=== PATIENT | male | born 1985 | race Caucasian/White ===

== ENCOUNTER 2025-03-23 10:08 | Outpatient (OUT) | payer SELFPAY ==
--- NOTE | 2025-03-23 | XR_ITS ---
The [address] [address] Patient Name: JUANA KOWALSKI MRN: [id number] date: 1985 Sex: M Assigned Patient Location: [facility] Current Patient Location: [facility] Accession/Order Number: [id number] Exam Date: 03/23/2025 10:00 Report Date: 03/23/2025 10:50 At the request of: JUANA FERRIS DO Procedure: XR elbow LT 2V LEFT ELBOW - 2 VIEWS CLINICAL HISTORY: Posterior left elbow pain radiating up the arm. No reported injury. COMPARISON: None AP and lateral views were obtained. There is no evidence of fracture or dislocation. There is mild posterior soft tissue swelling. There is no elbow effusion. XR/XR elbow LT 2V IMPRESSION: NO ACUTE BONY FINDINGS. Impression dictated by: Kylee Mosley M.D. 03/23/2025 10:50 AM Dictation Location: [place] [address] Electronically authenticated by: [id number] Y Date: 03/23/2025 10:50
--- OUTSIDE RECORDS SUMMARY | 2025-03-23 10:10 | XMS_ITS | Encounter Summary ---
Author Organization [facility] Address [address] [place] [address] Care Team Providers Care Rocket Motor Tester Name Role Phone Aron Palmer DO Primary Care Provider [phone] Walker Humphreys MD Unavailable [phone] Rohan Shelton DO Unavailable [phone] Source Comments In the event this information is protected by the Federal Confidentiality of Alcohol and Drug AbusePatient Records regulations: The Federal rules restrict any use of the information to criminally investigate or prosecute any alcohol or drug abuse patient.[facility] Encounter Details Date Type Department Care Team (Late st Contact Info) Description 03/10/2025 Patient Msg Neurology [address] [place] [id number] Provider, [facility] TREK Satisfaction Survey Social History Tobacco Use Types Packs/Day Years Used Date Smoking Tobacco: Every Day Cigarettes 1.5 18 Smokeless Tobacco: Current Chew Alcohol Use Standard Drinks/Week Comments Yes 0 (1 standard drink = 0.6 oz pur e alcohol) social PHQ-2 Answer Date Recorded PHQ-2 score 5 12/21/2024 Area Deprivation Index Answer Date Serjio rded National Score (1-100), lower number is lower ri 81 10/28/2024 State Score (1-10), lower number is lower risk 7 10/28/2024 Data from: https://www.neighborhoodatlas.medicine.[facility].edu/. 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
--- OUTSIDE RECORDS SUMMARY | 2025-03-23 10:10 | XMS_ITS | Encounter Summary ---
Author Organization [facility] Address [address] [place] [address] Care Team Providers Care Gear Setter Name Role Phone Aron Palmer DO Primary Care Provider [phone] Walker Humphreys MD Unavailable [phone] Rohan Shelton DO Unavailable [phone] Source Comments In the event this information is protected by the Federal Confidentiality of Alcohol and Drug AbusePatient Records regulations: The Federal rules restrict any use of the information to criminally investigate or prosecute any alcohol or drug abuse patient.[facility] Encounter Details Date Type Department Care Team (Late st Contact Info) Description 02/20/2025 Patient Msg Pain Recovery [address] [place] [address] Kaelyn Amor PSYD [address] [place] [address] TREK for Success/[employer] Social History Tobacco Use Types Packs/Day Years Used Date Smoking Tobacco: Every Day Cigarettes 1.5 18 Smokeless Tobacco: Current Chew Alcohol Use Standard Drinks/Week Comments Yes 0 (1 standard drink = 0.6 oz pur e alcohol) social PHQ-2 Answer Date Recorded PHQ-2 score 5 12/21/2024 Area Deprivation Index Answer Date Serjio rded National Score (1-100), lower number is lower ri sk 81 10/28/2024 State Score (1-10), lower number is lower risk 7 10/28/2024 Data from: https://www.neighborhoodatlas.medicine.[facility]/. 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
--- OUTSIDE RECORDS SUMMARY | 2025-03-23 10:10 | XMS_ITS | Encounter Summary ---
Author Organization [facility] Address [address] [place] [address] Care Team Providers Care Refinery Superintendent Name Role Phone Aron Palmer DO Primary Care Provider [phone] Walker Humphreys MD Unavailable [phone] Rohan Shelton DO Unavailable [phone] Source Comments In the event this information is protected by the Federal Confidentiality of Alcohol and Drug AbusePatient Records regulations: The Federal rules restrict any use of the information to criminally investigate or prosecute any alcohol or drug abuse patient.[facility] Encounter Details Date Type Department Care Team (Late st Contact Info) Description 11/19/2024 Patient Msg Pain Recovery [address] [place] [address] Jenna Pop, PhD [address] [place] [address] [facility] Social History Tobacco Use Types Packs/Day Years Used Date Smoking Tobacco: Every Day Cigarettes 1.5 18 Smokeless Tobacco: Current Chew Alcohol Use Standard Drinks/Week Comments Yes 0 (1 standard drink = 0.6 oz pur e alcohol) social PHQ-2 Answer Date Recorded PHQ-2 score 4 08/01/2018 Area Deprivation Index Answer Date Serjio rded National Score (1-100), lower number is lower ri sk 81 10/28/2024 State Score (1-10), lower number is lower risk 7 10/28/2024 Data from: https://www.neighborhoodatlas.medicine.[facility].edu/. 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
--- OUTSIDE RECORDS SUMMARY | 2025-03-23 10:10 | XMS_ITS | Encounter Summary ---
Author Organization [facility] Address [address] [place] [address] Care Team Providers Care Mill Tender Name Role Phone Aron Palmer DO Primary Care Provider [phone] Walker Humphreys MD Unavailable Rohan Shelton DO Unavailable [phone] Source Comments In the event this information is protected by the Federal Confidentiality of Alcohol and Drug AbusePatient Records regulations: The Federal rules restrict any use of the information to criminally investigate or prosecute any alcohol or drug abuse patient.[facility] Encounter Details Date Type Department Care Team (Late st Contact Info) Description 11/17/2024 Patient Msg Neurology Pain [address] [place] [id number] Provider, [facility] Visit on 11/[address] Pop Social History Tobacco Use Types Packs/Day Years [...] is lower risk 7 10/28/2024 Data from: https://www.neighborhoodatlas.medicine.[facility].edu/. 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
--- OUTSIDE RECORDS SUMMARY | 2025-03-23 10:10 | XMS_ITS | Clinical Summary ---
Author Organization [facility] Address [address] [place] [address] Care Team Providers Care Mining And Quarrying Machinery Repairer Name Role Phone Unavailable Primary Care Provider Unavailabl e Social History Tobacco Use Types Packs/Day Years Used Date Smoking Tobacco: Never Assessed Sex and Gender Information Value Date Recorded Sex Assigned at Not on file Legal Sex Male 8:25 PM EDT Gender Identity Not on file Sexual Orientation Not on file Last Filed Vital Signs Vital Sign Reading Time Taken Comments Blood Pressure 127/81 08/03/2021 12:00 PM EST Pulse - - Temperature - - Respiratory Rate - - Oxygen Saturation - - Inhaled Oxygen Concentration - - Weight 136 kg (300 lb) 08/03/2021 12:00 PM EST Height 190.5 cm (6' 3 ) 08/03/2021 12:00 PM EST Body Mass Index 37.5 08/03/2021 12:00 PM EST Plan of Treatment Not on file
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
== END 2025-03-23 10:09 | disposition home or self-care (01) ==
LOC: RAD 10:08
PROVIDERS: PCP Family Medicine; Visit Provider Orthopaedic Surgery Orthopaedic Trauma
DX: M25.522 Pain in left elbow (principal)
CPT/HCPCS: 73070